=== PATIENT | female | born 1980 ===

== ENCOUNTER 2017-03-02 10:58 | Emergency (ER) | payer OTHER ==
[2017-03-02 11:04] VITALS: BMI 34.3
[2017-03-02] MEDS ORDERED: Albuterol-Ipratrop 3 mg / 0.5 (3 ml) UD INH STA (11:53)
--- NOTE | 2017-03-02 12:11 | ED PDOC ---
HPI: CCC, URI, Sore Throat Time Seen by Provider: 03/02/17 11:10 Chief Complaint (Nursing): Cough, Cold, Congestion Chief Complaint (Provider): cough, shortness of breath History Per: Patient, Meeting Planner (Anne PETERS) History/Exam Limitations: no limitations Onset/Duration Of Symptoms: Days (2+ wks), Gradual Current Symptoms Are (Timing): Intermittent Episodes Associated Symptoms: Cough. denies: Sore Throat, Sputum, Neck Pain, Sinus Drainage, Vomiting, Diarrhea Severity: Moderate Additional Complaint(s): 36yo female c/o persistent dry cough, now with exertional dyspnea and malaise, feels like chest is tight, ongoing for about a month. Denies orthopnea, hemoptysis or sore throat. Past Medical History Reviewed: Historical Data, Nursing Documentation, Vital Signs Vital Signs: Last Vital Signs Temp 98 F 03/02/17 14:43 Pulse 96 H 03/02/17 14:43 Resp 18 03/02/17 14:43 BP 117/76 03/02/17 14:43 Pulse Ox 97 03/02/17 17:03 - Medical History PMH: No Chronic Diseases - Surgical History Surgical History: No Surg Hx - Family History Family History: States: Unknown Family Hx - Living Arrangements Living Arrangements: With Family - Social History Current smoker - smoking cessation education provided: No Alcohol: None - Home Medications Home Medications: Ambulatory Orders Medication Instructions Recorded Albuterol HFA [Ventolin HFA 90 1 - 2 puff IH Q4 PRN #1 inhaler 03/02/17 mcg/actuation (8 g)] Levofloxacin [Levaquin] 750 mg PO DAILY #10 tablet 03/02/17 - Allergies Allergies/Adverse Reactions: Allergies Allergy/AdvReac Type Severity Reaction Status Date / Time No Known Allergies Allergy Verified 03/02/17 11:29 Review of Systems ROS Statement: Except As Marked, All Systems Reviewed And Found Negative Constitutional: Negative for: Fever, Chills Cardiovascular: Negative for: Chest Pain, Palpitations Respiratory: Positive for: Cough, Shortness of Breath, SOB with Exertion. Negative for: Hemoptysis, Sputum, Wheezing Gastrointestinal: Negative for: Nausea, Vomiting, Abdominal Pain Genitourinary Female: Negative for: Dysuria Musculoskeletal: Positive for: Leg Pain. Negative for: Neck Pain, Arm Pain, Back Pain Skin: Negative for: Rash, Lesions, Jaundice Neurological: Negative for: Weakness, Headache, Dizziness Psych: Negative for: Depression Physical Exam - Reviewed Nursing Documentation Reviewed: Yes Vital Signs Reviewed: Yes - Physical Exam Appears: Positive for: Well, Non-toxic, No Acute Distress Head Exam: Positive for: ATRAUMATIC, NORMAL INSPECTION, NORMOCEPHALIC Skin: Positive for: Normal Color, Warm, DRY Eye Exam: Positive for: EOMI, Normal appearance, PERRL ENT: Positive for: Normal ENT Inspection Neck: Positive for: Normal, Painless ROM Cardiovascular/Chest: Positive for: Regular Rate, Rhythm Respiratory: Positive for: Decreased Breath Sounds. Negative for: Wheezing, Respiratory Distress Gastrointestinal/Abdominal: Positive for: Bowel Sounds, Soft. Negative for: Tenderness Back: Positive for: Normal Inspection Extremity: Positive for: Normal ROM Neurologic/Psych: Positive for: Alert, Oriented. Negative for: Motor/Sensory Deficits - Laboratory Results Result Diagrams: 03/02/17 12:50 03/02/17 12:50 - ECG O2 Sat by Pulse Oximetry: 97 Medical Decision Making Medical Decision Making: Workup for dyspnea initiated CXR no acute disease labs reviewed and unmarkable except elev DDimer thus will obtain CTA chest r/o PE given SOB and chest discomfort. CTA performed Accession No. : [id number] Patient Name / ID : DONNA ZHU / [id number] Exam Date : 03/02/2017 15:55:09 ( Approved ) Study Comment : Sex / Age : F / 36Y Creator : Quinn Garrido MD Dictator : Quinn Garrido MD Medical Accountant : Machinist Brake : Quinn Garrido MD Approver2 : Report Date : 03/02/2017 16:41:08 My Comment : PROCEDURE: CT Chest with contrast (Pulmonary Angiogram) HISTORY: SOB chest pressure COMPARISON: None available. TECHNIQUE: Axial computed tomography images were obtained of the chest in the pulmonary arterial phase of enhancement. Coronal and sagittal reformatted images were created and reviewed. Intravenous contrast dose: 80 cc Visipaque 320 Radiation dose: Total exam DLP = 316.31 mGy-cm. This CT exam was performed using one or more of the following dose reduction techniques: Automated exposure control, adjustment of the mA and/or kV according to patient size, and/or use of iterative reconstruction technique. FINDINGS: PULMONARY ARTERIES: Unremarkable. No pulmonary embolism. AORTA: No acute findings. No thoracic aortic aneurysm. LUNGS: There is a focal rounded area of opacity in the right lower lobe, possibly representing pneumonia. Followup to clearing is advised to exclude neoplasm. This measures approximately 2 cm in diameter. There is a 6 mm pleural-based nodule in the right lower lobe (series 5, image 30). Followup noncontrast chest CT is advised in 6-12 months as per Fleischner society criteria. There is no other pulmonary mass identified. There is minimal subsegmental atelectasis seen in the left lower lobe. PLEURAL SPACES: Unremarkable. No effusion or pneuomothorax. HEART: Unremarkable. No cardiomegaly. No significant pericardial effusion. LYMPH NODES: No lymphadenopathy. BONES, CHEST WALL: Unremarkable. No fracture or destructive lesion OTHER FINDINGS: Images through upper abdomen include only the most superior aspect of what is likely peripherally calcified cholesterol stones containing central nitrogen, within the gallbladder. IMPRESSION: No evidence of pulmonary embolism. Focal rounded opacity in the right lower lobe , likely pneumonia. Followup to clearing to exclude neoplasm. 6 mm pleural- based nodule in right lower lobe. Followup with noncontrast chest CT examination 6-12 months. Probable cholelithiasis. This is only seen on several of the most caudal slices of this examination through the upper abdome Will iniate levaquin 750mg daily for 10 days and followup PMD/ pulmonary for repeat imaging to assure improvement/ resolution. With normal SPO2, no tachycardia stable for outpatient management with followup. Results and followup recs explained via [employer] [facility] #[id number] Disposition - Clinical Impression Clinical Impression: Pulmonary nodule, Pneumonia - Patient ED Disposition Is Patient to be Admitted: No Counseled Patient/Family Regarding: Studies Performed, Diagnosis, Need For Followup, Rx Given - Disposition Referrals: Julio Batista MD [Staff Provider] - Disposition: Transfer of Care Disposition Time: 17:00 Condition: STABLE Additional Instructions: SEE PMD OR LUNG SPECIALIST TO HAVE CHEST XRAY AND CT CHEST REPEATED. THERE IS A SMALL NODULE IN YOUR LUNG WHICH NEEDS REPEAT TESTING IN 3-6 MONTHS TO ASSURE IT HAS NOT ENLARGED TAKE ANTIBIOTICS DIRECTED Prescriptions: Albuterol HFA [Ventolin HFA 90 mcg/actuation (8 g)] 1 - 2 puff IH Q4 PRN #1 inhaler PRN Reason: Shortness Of Breath Levofloxacin [Levaquin] 750 mg PO DAILY #10 tablet Instructions: Community Acquired Pneumonia (ED), Pulmonary Nodules (ED) Forms: [employer] (Egyptian) Print Language: TUVALUAN
[2017-03-02] MEDS ORDERED: Albuterol-Ipratrop 3 mg / 0.5 (3 ml) UD ONE (12:21)
[2017-03-02 13:03] LABS: BASO % 0.3 % (0.0-2.0); EOS # 0.1 K/uL (0.0-0.7); EOS % 0.9 % (0.0-4.0); HEMATOCRIT 36.9 % (34.0-47.0); LYMPH # 1.8 K/uL (1.0-4.3); MEAN CELL VOLUME 85.2 fl (81.0-99.0); MEAN CORPUSCULAR HEMOGLOBIN 28.8 pg (27.0-31.0); MEAN CORPUSCULAR HGB CONC 33.7 g/dL (33.0-37.0); MEAN PLATELET VOLUME 9.2 fl (7.2-11.7); MONO # 0.4 K/uL (0.0-0.8); MONO % 5.6 % (0.0-10.0); NEUT # 4.2 K/uL (1.8-7.0); NEUT % 65.2 % (50.0-75.0); NRBC % 0.1 % (0.0-0.0); RED CELL DISTRIBUTION WIDTH 13.3 % (11.5-14.5); WHITE BLOOD COUNT 6.5 K/uL (4.8-10.8)
[2017-03-02 13:13] LABS: ALKALINE PHOSPHATASE 150 U/L (38-126); ALT/SGPT 122 U/L (9-52); AST/SGOT 79 U/L (14-36); BILIRUBIN,TOTAL 0.7 mg/dl (0.2-1.3); BLOOD UREA NITROGEN 11 mg/dl (7-17); CARBON DIOXIDE 24 mmol/L (22-30); CHLORIDE 100 mmol/L (98-107); GFR AFRICAN-AMERICAN > 60; GLUCOSE,RANDOM 311 mg/dL (65-105); POTASSIUM 3.5 MMOL/L (3.6-5.0); SODIUM 133 mmol/l (132-148); TOTAL PROTEIN 7.3 G/DL (6.3-8.2)
--- NOTE | 2017-03-02 13:22 | RAD ---
HISTORY: cough COMPARISON: No prior. TECHNIQUE: Chest PA and lateral FINDINGS: LUNGS: No active pulmonary disease. PLEURA: No significant pleural effusion identified. No pneumothorax apparent. CARDIOVASCULAR: Normal. OSSEOUS STRUCTURES: No significant abnormalities. VISUALIZED UPPER ABDOMEN: Normal. OTHER FINDINGS: None. IMPRESSION: No active disease. No infiltrate
[2017-03-02 13:33] VITALS: RESP 18
[2017-03-02] MEDS ORDERED: Sodium Chloride 0.9% 50 ML IV ONE (15:38)
[2017-03-02] MEDS ORDERED: Iodixanol 320 MG/ML 100 ML BOTTLE IV ONE (15:38)
--- NOTE | 2017-03-02 16:42 | CT ---
PROCEDURE: CT Chest with contrast (Pulmonary Angiogram) HISTORY: SOB chest pressure COMPARISON: None available. TECHNIQUE: Axial computed tomography images were obtained of the chest in the pulmonary arterial phase of enhancement. Coronal and sagittal reformatted images were created and reviewed. Intravenous contrast dose: 80 cc Visipaque 320 Radiation dose: Total exam DLP = 316.31 mGy-cm. This CT exam was performed using one or more of the following dose reduction techniques: Automated exposure control, adjustment of the mA and/or kV according to patient size, and/or use of iterative reconstruction technique. FINDINGS: PULMONARY ARTERIES: Unremarkable. No pulmonary embolism. AORTA: No acute findings. No thoracic aortic aneurysm. LUNGS: There is a focal rounded area of opacity in the right lower lobe, possibly representing pneumonia. Followup to clearing is advised to exclude neoplasm. This measures approximately 2 cm in diameter. There is a 6 mm pleural-based nodule in the right lower lobe (series 5, image 30). Followup noncontrast chest CT is advised in 6-12 months as per Fleischner society criteria. There is no other pulmonary mass identified. There is minimal subsegmental atelectasis seen in the left lower lobe. PLEURAL SPACES: Unremarkable. No effusion or pneuomothorax. HEART: Unremarkable. No cardiomegaly. No significant pericardial effusion. LYMPH NODES: No lymphadenopathy. BONES, CHEST WALL: Unremarkable. No fracture or destructive lesion OTHER FINDINGS: Images through upper abdomen include only the most superior aspect of what is likely peripherally calcified cholesterol stones containing central nitrogen, within the gallbladder. IMPRESSION: No evidence of pulmonary embolism. Focal rounded opacity in the right lower lobe, likely pneumonia. Followup to clearing to exclude neoplasm. 6 mm pleural-based nodule in right lower lobe. Followup with noncontrast chest CT examination 6-12 months. Probable cholelithiasis. This is only seen on several of the most caudal slices of this examination through the upper abdomen.
[2017-03-02 17:28] VITALS: BP 115/76; PULSE 92; TEMP 98.3; O2SAT 100
--- NOTE | 2017-03-03 11:52 | CARD ---
APPROVED REPORT EKG Measurement Heart [id number] <Conclusion> Normal sinus rhythm Normal ECG
== END 2017-03-02 17:28 | disposition home or self-care (01) ==
LOC: H.ER 10:58
DX: J18.9 Pneumonia, unspecified organism (principal); R91.1 Solitary pulmonary nodule
CPT/HCPCS: 71020; 71275; 80053; 81025; 83880; 85025; 85378; 93005; 99283; Q9967

== ENCOUNTER 2017-10-26 10:04 | Emergency (ER) | payer OTHER ==
[2017-10-26 10:29] VITALS: BMI 35.8
[2017-10-26] MEDS ORDERED: Sodium Chloride 0.9% 1,000 ML IV SCH (10:30)
--- NOTE | 2017-10-26 10:32 | ED PDOC ---
HPI:STROKE - Time Time: 10:20 - Historian Historian: Patient - Chief Complaint Chief Complaint: Numbness (and tingling to left arm) - Onset Date: 10/26/17 Time: 04:00 - Timing Timing: Currently Symptomatic - Notes: Notes:: Kassandra Rico is a 37 year old female, with no significant past medical history, who presents to the emergency department complaining of left arm pain, numbness and tingling onset since 04:00 today. Patient states pain was initially on both arms but has since resolved. She also reports a similar episode last month but it resolved on its own. Patient states she was seen last week at a hospital in [place] and was told her sugar was elevated. She denies any weakness, nausea, vomit, headache or other medical complaints. PMD: None provided. NIHSS Stroke Scale - Date/Time Evaluation Performed Date Performed: 10/26/17 When Was NIHSS Performed: Baseline - How Severe is the Stroke Level of Consciousness: 0=Alert LOC to Questions: 0=Both comments correct LOC to commands: 0=Obeys both correctly Visual: 0=No visual loss Facial: 0=Normal Motor Arm - Left: 0=No drift Motor Arm - Right: 0=No drift Motor Leg - Left: 0=No drift Motor Leg - Right: 0=No drift Limb Ataxia: 0=Absent Sensory: 0=Normal Best Language: 0=No aphasia Dysarthia: 0=Normal articulation Extinction & Inattention (Neglect): 0=Normal, no object rTPA Inclusion/Exclusion - Refusal of Treatment Patient Refused Treatment: No - Inclusion Criteria for Altepase Patient is 18 years or Older: Yes The Clinical Diagnosis of Ischemic Stroke That is Causing a Potentially Disabling Neurological Deficit: No Time of Onset is Well Established to be Less Than 270 Minute Before Treatment Would Begin: No Risk/Benefit Discussed With Patient/Family Member Present: No - Exclusion Criteria for Altepase Uncontrolled Hypertension at Time of Treatment (Systolic BP above 185 or Diastolic BP above 110 mmHg): No Active Internal Bleeding: No Known Bleeding Diathesis Including but Not Limited to: Platelets Below 100,000/ mm,PTT Above 40 sec After Heparin Use, Current Use of Oral Anitcoagulant With INR Greater Than 1.7 or PT Greater Than 15 secs: No Evidence of an Intracranial Hemorrhage: No Evidence of Major Acute Infarct With Signs Greater Than 1/3 MCA Territory: No Suspicion of Subarachnoid Hemorrhage on Pretreatment Evaluation Even if CT Head Negative For Hemorrhage: No - Warning to TPA With Conditions Following Conditions Weighed Against Anticipated Benefit: No Past Medical History Reviewed: Historical Data, Nursing Documentation, Vital Signs Vital Signs: Last Vital Signs Temp 98.1 F 10/26/17 10:11 Pulse 76 10/26/17 10:11 Resp 21 10/26/17 10:11 BP 132/80 10/26/17 10:11 Pulse Ox 98 10/26/17 10:11 - Medical History PMH: No Chronic Diseases - Surgical History Surgical History: No Surg Hx - Family History Family History: States: Unknown Family Hx - Social History Current smoker - smoking cessation education provided: No Alcohol: None Drugs: Denies - Home Medications Home Medications: Ambulatory Orders Medication Instructions Recorded No Known Home Med 10/26/17 - Allergies Allergies/Adverse Reactions: Allergies Allergy/AdvReac Type Severity Reaction Status Date / Time No Known Allergies Allergy Verified 03/02/17 11:29 Review of Systems ROS Statement: Except As Marked, All Systems Reviewed And Found Negative Gastrointestinal: Negative for: Nausea, Vomiting Neurological: Positive for: Numbness (left arm). Negative for: Headache Physical Exam - Reviewed Nursing Documentation Reviewed: Yes Vital Signs Reviewed: Yes - Physical Exam Appears: Positive for: Non-toxic Head Exam: Positive for: ATRAUMATIC, NORMAL INSPECTION, NORMOCEPHALIC Skin: Positive for: Normal Color, Warm, Dry Eye Exam: Positive for: Normal appearance, EOMI, PERRL ENT: Positive for: Normal ENT Inspection Neck: Positive for: Painless ROM Cardiovascular/Chest: Positive for: Regular Rate, Rhythm. Negative for: Murmur Respiratory: Positive for: Normal Breath Sounds. Negative for: Respiratory Distress Gastrointestinal/Abdominal: Positive for: Normal Exam, Soft. Negative for: Tenderness Back: Positive for: Normal Inspection Extremity: Positive for: Normal ROM (upper and lower extremities). Negative for : Deformity, Swelling Neurologic/Psych: Positive for: Alert, Oriented (x3), Gait (steady), Other ( Upper extremities equal strength bilaterally). Negative for: Motor/Sensory Deficits (no focal deficits), Aphasia, Facial Droop - Laboratory Results Result Diagrams: 10/26/17 10:30 10/26/17 10:30 - ECG O2 Sat by Pulse Oximetry: 98 (RA) Pulse Ox Interpretation: Normal - Core Measure Core Measure Indicators: Code Stroke Medical Decision Making Medical Decision Making: Time: Initial Impression: left arm paresthesia Initial Plan: --Type and screen --Head w/o contrast (Code stroke) [CT] --EKG --CMP --Hemoglobin A1C --Lipid Panel --Troponin I --Stroke team consult --CBC w/ differential --PTT --PT --Chest portable [RAD] --Sodium Chloride 1,000 ml IV 100 mls/hr --Reevaluation 10:[address] FINDINGS: HEMORRHAGE: No intracranial hemorrhage. BRAIN: No mass effect or edema. No atrophy or chronic microvascular ischemic changes. VENTRICLES: Unremarkable. No hydrocephalus. CALVARIUM: Unremarkable. PARANASAL SINUSES: Right sphenoid sinus soft tissue inflammatory like change -here small retention cyst is favored. MASTOID AIR CELLS: Unremarkable as visualized. No inflammatory changes. OTHER FINDINGS: None. IMPRESSION: No intracranial hemorrhage or mass effect. Incidental right sphenoid sinus retention cyst. 10:50 -Discussed case with Dr. Bean who states pt. can be discharged home if everything comes back negative and advises pt. to follow up with him as an outpatient. 10:53 -Ordered Cervical spine w/o contrast [CT] 11:21 CXR FINDINGS: LUNGS: No active pulmonary disease. Given the shallow lung volumes. PLEURA: No significant pleural effusion identified, no pneumothorax apparent. CARDIOVASCULAR: Normal. OSSEOUS STRUCTURES: No significant abnormalities. VISUALIZED UPPER ABDOMEN: Normal. OTHER FINDINGS: None. IMPRESSION: No active pulmonary disease -appreciated given the shallow lung volumes. 11:47 -Pt. has elevated LFTs. 12:[address] FINDINGS: VERTEBRAE: No fracture. Normal alignment. No destructive bony lesion. DISCS/SPINAL CANAL/NEURAL FORAMINA: No significant central canal or neural foraminal stenosis. Discs heights are grossly preserved. PARASPINAL SOFT TISSUES: Unremarkable. OTHER FINDINGS: None. IMPRESSION: Unremarkable CT of the cervical spine. 14:42 Stress to patient the importance of following up for her elevated sugar, LFTs and cholesterol. Pt. states symptoms have resolved. 14:45 Upon provider reevaluation patient is feeling better, is medically stable, and requires no further treatment in the ED at this time. Patient will be discharged home. Counseling was provided and all questions were answered regarding diagnosis and need for follow up with PMD in [place] due to elevated sugar. There is agreement to discharge plan. Return if symptoms persist or worsen. 15:00 EKG: NSR @ 79bpm 15:15 Repeat accucheck is 179 ----- Scribe Attestation: Documented by Aubrey Loya, acting as a scribe for Gaby Beverly MD. Provider Scribe Attestation: All medical record entries made by the Scribe were at my direction and personally dictated by me. I have reviewed the chart and agree that the record accurately reflects my personal performance of the history, physical exam, medical decision making, and the department course for this patient. I have also personally directed, reviewed, and agree with the discharge instructions and disposition. Disposition - Clinical Impression Clinical Impression: Arm paresthesia, left - Disposition [facility]errals: [facility] [Outside] [facility] [Outside] Disposition Time: 14:45 Condition: IMPROVED Additional Instructions: follow up with your primary doctor in 1-2 days for elevated sugar, elevated cholesterol and Liver function tests return to the ED with any worsening or concerning symptoms also follow up with neurologist Dr Bean this week for follow up of parasthesia Instructions: Paresthesias (DC) Forms: [employer] (Beninese)
--- NOTE | 2017-10-26 10:34 | CT ---
Date of service: 10/26/2017 PROCEDURE: CT HEAD WITHOUT CONTRAST. HISTORY: code stroke COMPARISON: None available. TECHNIQUE: Axial computed tomography images were obtained through the head/brain without intravenous contrast. Radiation dose: Total exam DLP = 775 mGy-cm. This CT exam was performed using one or more of the following dose reduction techniques: Automated exposure control, adjustment of the mA and/or kV according to patient size, and/or use of iterative reconstruction technique. FINDINGS: HEMORRHAGE: No intracranial hemorrhage. BRAIN: No mass effect or edema. No atrophy or chronic microvascular ischemic changes. VENTRICLES: Unremarkable. No hydrocephalus. CALVARIUM: Unremarkable. PARANASAL SINUSES: Right sphenoid sinus soft tissue inflammatory like change -here small retention cyst is favored. MASTOID AIR CELLS: Unremarkable as visualized. No inflammatory changes. OTHER FINDINGS: None. IMPRESSION: No intracranial hemorrhage or mass effect. Incidental right sphenoid sinus retention cyst.
[2017-10-26 10:47] LABS: BASO # 0.1 K/uL (0.0-0.2); BASO % 1.1 % (0.0-2.0); EOS % 0.4 % (0.0-4.0); HEMOGLOBIN 13.3 g/dL (12.0-16.0); LYMPH # 2.2 K/uL (1.0-4.3); LYMPH % 33.1 % (20.0-40.0); MEAN CELL VOLUME 85.1 fl (81.0-99.0); MEAN CORPUSCULAR HGB CONC 35.2 g/dL (33.0-37.0); MONO # 0.3 K/uL (0.0-0.8); MONO % 4.5 % (0.0-10.0); NEUT # 4.1 K/uL (1.8-7.0); NEUT % 60.9 % (50.0-75.0); NRBC % 0.1 % (0.0-0.0); RBC 4.42 Mil/uL (3.80-5.20); RED CELL DISTRIBUTION WIDTH 13.3 % (11.5-14.5); WHITE BLOOD COUNT 6.7 K/uL (4.8-10.8)
[2017-10-26 10:57] LABS: ALB/GLOB RATIO 1.1 (1.0-2.1); ALBUMIN 4.1 g/dL (3.5-5.0); ALT/SGPT 94 U/L (9-52); AST/SGOT 67 U/L (14-36); BLOOD UREA NITROGEN 14 mg/dl (7-17); CALCIUM 9.5 mg/dL (8.4-10.2); GFR AFRICAN-AMERICAN > 60; GFR NON-AFRICAN AMERICAN > 60; HDL CHOLESTEROL 21 MG/DL (30-70)
[2017-10-26 11:07] LABS: LDL CHOLESTEROL 74 mg/dL (0-129)
--- NOTE | 2017-10-26 11:23 | RAD ---
Date of service: 10/26/2017 HISTORY: Code Stroke COMPARISON: 03/02/2017 FINDINGS: LUNGS: No active pulmonary disease. Given the shallow lung volumes. PLEURA: No significant pleural effusion identified, no pneumothorax apparent. CARDIOVASCULAR: Normal. OSSEOUS STRUCTURES: No significant abnormalities. VISUALIZED UPPER ABDOMEN: Normal. OTHER FINDINGS: None. IMPRESSION: No active pulmonary disease -appreciated given the shallow lung volumes.
[2017-10-26 11:45] LABS: INR 0.9 (0.9-1.2); PARTIAL THROMBOPLASTIN TIME 29.5 Seconds (25.6-37.1); PROTHROMBIN TIME 10.4 Seconds (9.8-13.1)
--- NOTE | 2017-10-26 12:12 | CT ---
Date of service: 10/26/2017 PROCEDURE: CT Cervical Spine without contrast HISTORY: parasthesia left side COMPARISON: None available. TECHNIQUE: Axial computed tomography images were obtained of the cervical spine without the use of intravenous contrast. Coronal and sagittal reformatted images were created and reviewed. Radiation dose: Total exam DLP = 329 mGy-cm. This CT exam was performed using one or more of the following dose reduction techniques: Automated exposure control, adjustment of the mA and/or kV according to patient size, and/or use of iterative reconstruction technique. FINDINGS: VERTEBRAE: No fracture. Normal alignment. No destructive bony lesion. DISCS/SPINAL CANAL/NEURAL FORAMINA: No significant central canal or neural foraminal stenosis. Discs heights are grossly preserved. PARASPINAL SOFT TISSUES: Unremarkable. OTHER FINDINGS: None. IMPRESSION: Unremarkable CT of the cervical spine.
[2017-10-26 14:09] VITALS: RESP 16
[2017-10-26 14:11] VITALS: BP 125/80
[2017-10-26] MEDS ORDERED: Sodium Chloride 0.9% 1,000 ML IV STA (14:34)
[2017-10-26 16:37] VITALS: PULSE 75; TEMP 97.9
[2017-10-27 13:06] VITALS: O2SAT 98
--- NOTE | 2017-10-27 15:11 | CARD ---
APPROVED REPORT Date of service: 10/26/2017 EKG Measurement Heart [id number] <Conclusion> Normal sinus rhythm Normal ECG
--- NOTE | 2017-10-27 15:14 | CARD ---
APPROVED REPORT Date of service: 10/26/2017 EKG Measurement Heart [id number] IA P48 [id number] <Conclusion> Regular sinus rhytm Baseline electrocardiogram Small q waves II, III, AVF
== END 2017-10-26 16:37 | disposition home or self-care (01) ==
LOC: H.ER 10:04
DX: R20.2 Paresthesia of skin (principal); J34.1 Cyst and mucocele of nose and nasal sinus
CPT/HCPCS: 70450; 71045; 72125; 80053; 80061; 81025; 82948; 83036; 84484; 85025; 85610; 85730; 86850; 86900; 93005; 96360; 99285; J7030